=== PATIENT | female | born 1945 | race Caucasian/White ===

== ENCOUNTER 2016-09-05 10:40 | Observation (INO) | payer MEDICARE, OTHER ==
[~2016-09-05] VITALS: Ht 152.4 cm; Wt 41.7 kg
[~2016-09-05 10:40] MED LIST: ASPIR 8181 MG PO; CRESTOR10 MG PO; EFFIENT10 MG PO; LEVAQUIN500 MG PO; LOSARTAN POTAS100 MG PO; METOPROLOL SUCC25 MG PO; NEURONTIN 100100 MG PO; NITROSTAT0.4 MG SL; RANEXA500 MG PO; RANITIDINE HCL150 MG PO; SACUBITRIL PO; SPIRONOLACTONE25 MG PO; TYLENOL W/CODEIN1 E1 PO; VALSARTAN PO; VIT D3 PO
[2016-09-05 11:38] LABS: HEMOGLOBIN 12.2 gm/dl (12.3-15.3); RED BLOOD COUNT 3.92 M/UL (4.00-5.10); WHITE BLOOD COUNT 12.7 K/UL (4.5-11.0)
[2016-09-05 12:07] LABS: BUN/CREATININE RATIO 12 (0-10)
[2016-09-06 05:49] LABS: HEMOGLOBIN 12.1 gm/dl (12.3-15.3); RED BLOOD COUNT 3.96 M/UL (4.00-5.10); WHITE BLOOD COUNT 8.7 K/UL (4.5-11.0)
[2016-09-06 06:11] LABS: BUN/CREATININE RATIO 14 (0-10)
[2016-09-06] MEDS ORDERED: COREG 3.125M3.125 MG PO (12:58)
[2016-09-06] MEDS ORDERED: CALCIUM500 MG PO (13:35)
[2016-09-06] MEDS ORDERED: REMERON15 MG PO (13:35)
[2016-09-06] MEDS ORDERED: SYMBICORT 80-41 INHA INH (13:36)
[2016-09-06] MEDS ORDERED: ASPIRIN CHEWABL81 MG PO (13:53)
== END 2016-09-06 14:22 | disposition home or self-care (01) ==
LOC: ER1 10:40 → ZEROF 13:00 → M/S 13:00
PROVIDERS: Emergency Medicine; ADMIT Internal Medicine
DX: R07.89 Other chest pain (principal); M94.0 Chondrocostal junction syndrome [Tietze]; I25.5 Ischemic cardiomyopathy; I11.0 Hypertensive heart disease with heart failure; I25.10 Atherosclerotic heart disease of native coronary artery without angina pectoris; I50.22 Chronic systolic (congestive) heart failure; I44.7 Left bundle-branch block, unspecified; J44.9 Chronic obstructive pulmonary disease, unspecified; K21.9 Gastro-esophageal reflux disease without esophagitis; E78.5 Hyperlipidemia, unspecified; J90 Pleural effusion, not elsewhere classified; Z87.311 Personal history of (healed) other pathological fracture; Z80.3 Family history of malignant neoplasm of breast; Z82.3 Family history of stroke; Z82.49 Family history of ischemic heart disease and other diseases of the circulatory system; Z88.8 Allergy status to other drugs, medicaments and biological substances; Z79.82 Long term (current) use of aspirin; Z79.899 Other long term (current) drug therapy
CPT/HCPCS: 36415; 71010; 80048; 80053; 82550; 82553; 83735; 83874; 83880; 84484; 85025; 87081; 87880; 93005; 99285; G0378

== ENCOUNTER → 2020-08-04 | Outpatient (CLI) | payer MEDICARE ==
[~2020-08-04] MED LIST changes: +ASPIRIN CHEWABL81 MG PO; +ATORVASTATIN CA20 MG PO; +BENTYL 10MG CAP10 MG PO; +BRILINTA 90 MG90 MG PO; +CALCIUM500 MG PO; +CARVEDILOL12.5 MG PO; +CORDARONE 200M200 MG PO; +COREG 3.125M3.125 MG PO; +DIOVAN80 MG PO; +ELIQUIS5 MG PO; +ENTRESTO 24 MG1 EACH PO; +FUROSEMIDE20 MG PO; +LEVALBUTER1.25 MG/3 NEB; +LEXAPRO10 MG PO; +NORCO 5-325 TA1 EACH PO; +PANTOPRAZOLE SO40 MG PO; +PREDNISONE 10 M10 MG PO; +PRILOSEC OTC20 MG PO; +PROBIOTIC1 EAC3 PO; +REMERON15 MG PO; +SOLU-MEDRO40 MG/1 ML IVP; +SYMBICORT 80-41 INHA INH; +TOPROL XL50 MG PO
== END ==
LOC: HEART 5 14:44
DX: R94.39 Abnormal result of other cardiovascular function study (principal); J30.9 Allergic rhinitis, unspecified; J98.4 Other disorders of lung; F41.9 Anxiety disorder, unspecified; J44.9 Chronic obstructive pulmonary disease, unspecified
CPT/HCPCS: 94010; 94729

== ENCOUNTER → 2020-10-30 | Outpatient (CLI) | payer MEDICARE | LOC: LAB 15:19 | DX: J98.4 Other disorders of lung (principal); J43.9 Emphysema, unspecified; R09.02 Hypoxemia | CPT/HCPCS: 36600; 71046; 82803 ==